=== PATIENT | female | born 2005 | race Two or more races ===

== ENCOUNTER 2024-10-08 14:08 | Emergency (ER) | payer MEDICAID, SELFPAY ==
[2024-10-08 14:33] VITALS: BP 105/75; PULSE 100; RESP 20; TEMP 36.9; O2SAT 100; BMI 23.9
--- NOTE | 2024-10-08 14:42 | EKG_ITS ---
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2005 Requested By: Sunni Mae ([facility]) [place] Order Number: [id number] Reading MD: Sunni Mae ([facility]) [place] Measurements Intervals [place] Rate: 119 P: 75 ID: 120 QRS: 114 QRSD: 102 T: 46 QT: 340 QTc: 478 Interpretive Statements SINUS TACHYCARDIA POSSIBLE LEFT ATRIAL ENLARGEMENT [-0.1mV P WAVE IN V1/V2] INCOMPLETE RIGHT BUNDLE BRANCH BLOCK [90+ ms QRS DURATION, TERMINAL R IN V1/V2, 40+ ms S IN I/aVL/V4/V5/V6] LEFT POSTERIOR FASCICULAR BLOCK [QRS AXIS > 109, INFERIOR Q] NONSPECIFIC T-WAVE ABNORMALITY Compared to ECG 07/07/2024 08:20:35 Incomplete right bundle-branch block now present Left posterior fascicular block now present T-wave abnormality now present Short ID interval no longer present Right-axis deviation no longer present /store/S0/[id number].pdf
--- NOTE | 2024-10-08 14:43 | XR_ITS ---
Examination: PA lateral chest 2 views TECHNIQUE: Upright PA lateral chest 2 views Exam date and time: October 08, 2024 1447 hours INDICATIONS: Tachycardia today. FINDINGS: Normal heart size Lungs are clear. The osseous structures are intact IMPRESSION: No active disease
--- NOTE | 2024-10-08 14:44 | PD.EDRME ---
Rapid Medical Screening Exam RME Arrival date/time: 10/08/24 14:08 18-year-old female presents to the emergency department with complaints of palpitations history of SVT patient reports she had a 5-minute episode of palpitations and she went ahead and took her flecainide dose relieving her symptoms she is here because she is having some mild chest pain normal palpitations. I have greeted and performed a focused initial assessment of this patient. Initial appropriate labs ordered at this time. A comprehensive ED assessment and evaluation of the patient and analysis of all test and completion of medical decision making process will be conducted by additional ED provider. Chief Complaint: Arrhythmia/Palpitations Time Seen by Provider: 10/08/24 14:16 Vital signs: Vital Signs Temperature 98.5 F 10/08/24 14:33 Pulse Rate 100 10/08/24 14:33 Respiratory Rate 20 10/08/24 14:33 Blood Pressure 105/75 10/08/24 14:33 Pulse Oximetry (%) 100 10/08/24 14:33 Oxygen Delivery Method Room Air 10/08/24 14:33
[2024-10-08 15:16] LABS: Basophils % (Auto) 1 % (0-2.5); Eosinophils # (Auto) 0.1 Thou/mm3 (0.0-0.5); Eosinophils % (Auto) 1 % (0-10); Hematocrit 36.6 % (36.0-46.0); Hemoglobin 12.9 g/dL (12.0-16.0); Immature Granulocytes % (Auto) 0 % (0-0); Immature Granulocytes Auto 0.01 Thou/mm3 (0.00-0.00); Lymphocytes # (Auto) 1.3 Thou/mm3 (1.0-5.0); Lymphocytes % (Auto) 21 % (10-50); Mean Corpuscular HGB Conc 35.2 g/dl (31.0-37.0); Mean Corpuscular Hemoglobin 32.2 pg (25.0-35.0); Mean Corpuscular Volume 91 fL (80-100); Monocytes # (Auto) 0.4 Thou/mm3 (0.0-0.8); Monocytes % (Auto) 7 % (0-12); Neutrophils # (Auto) 4.6 Thou/mm3 (1.8-7.7); Neutrophils % (Auto) 71 % (37-80); Nucleated Red Blood Cell % 0 /100 WBC (0); Platelet Count 181 Thou/mm3 (140-440); RDW Standard Deviation 40.4 fL (36.4-46.3); Red Blood Count 4.01 Miln/mm3 (4.00-5.20); White Blood Count 6.4 Thou/mm3 (4.5-11.0)
[2024-10-08 15:27] LABS: Collection Type, Urine Clean Catch
[2024-10-08 15:33] LABS: Bilirubin,Urine Negative (Negative); Blood,Urine Negative (Negative); Clarity,Urine Clear (Clear/Hazy); Color,Urine Lt-Yellow (Lt Yel-Yel); Glucose, Urine Negative (Negative); Ketones,Urine Negative (Negative); Leukocyte Esterase,Urine Positive (Negative); Nitrite,Urine Negative (Negative); Protein,Urine Trace (Neg - Trace); RBC,Urine 1 /hpf (0-3); Specific Gravity,Urine 1.022 (1.001-1.035); Squamous Epithelial Cell,Urine 2 /hpf (0-5); Urobilinogen,Urine Negative mg/dL (0.0-1.0); WBC,Urine 1 /hpf (0-5)
[2024-10-08 15:36] LABS: HCG Qualitative,Urine Negative
[2024-10-08 15:55] LABS: Alanine Aminotransferase 14 U/L (10-49); Albumin, Serum 4.8 gm/dL (3.5-5.0); Albumin/Globulin Ratio 1.7 (1.2-2.2); Alkaline Phosphatase 54 U/L (46-116); Anion Gap 7 (7-16); Aspartate Amino Transferase 15 U/L (0-34); BUN/Creatinine Ratio 15 Ratio (12-20); Bilirubin,Total 1.7 mg/dL (0.3-1.2); Blood Urea Nitrogen 9 mg/dL (9-23); Calcium 9.5 mg/dL (8.3-10.6); Calcium (Corrected) 9.5 mg/dL (8.5-10.1); Carbon Dioxide 24.6 mMol/L (20.0-31.0); Chloride 104 mMol/L (98-107); Creatinine (Component) 0.6 mg/dL (0.6-1.3); Estimated Creatinine Clearance 124.8 mL/min (>60); Globulin 2.8 gm/dL (2.3-3.5); Glucose 87 mg/dL (74-106); Lipase 35 U/L (12-53); Osmolality,Calculated 269 (275-295); Potassium 4.2 mMol/L (3.4-5.1); Sodium 136 mMol/L (136-145); Total Protein 7.6 gm/dL (5.7-8.2); Troponin I < 0.002 ng/mL (0.0-0.045); eGFR > 60 See Note
[2024-10-08 16:17] VITALS: BP 103/68; PULSE 109; RESP 16; TEMP 36.8; O2SAT 99
--- NOTE | 2024-10-08 16:18 | EKG_ITS ---
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2005 Requested By: Sunni Mae ([facility]) [place] Order Number: [id number] Reading MD: Sunni Mae ([facility]) [place] Measurements Intervals [place] Rate: 103 P: 79 CT: 134 QRS: 100 QRSD: 91 T: 50 QT: 326 QTc: 429 Interpretive Statements SINUS TACHYCARDIA POSSIBLE LEFT ATRIAL ENLARGEMENT [-0.1mV P WAVE IN V1/V2] BORDERLINE RIGHT AXIS DEVIATION [QRS AXIS > 90] INCOMPLETE RIGHT BUNDLE BRANCH BLOCK [90+ ms QRS DURATION, TERMINAL R IN V1/V2, 40+ ms S IN I/aVL/V4/V5/V6] ABNORMAL RHYTHM ECG Compared to ECG 07/07/2024 08:20:35 Incomplete right bundle-branch block now present Short CT interval no longer present /store/S0/[id number]/ecg/[id number].pdf
--- NOTE | 2024-10-08 16:51 | EDNOTE_ITS ---
ED Arrhythmia Palp. RME/HPI General Chief Complaint: Arrhythmia/Palpitations Stated Complaint: HEART PALPITATIONS Time Seen by Provider: 10/08/24 14:16 Source: patient Arrival date/time: 10/08/24 14:08 A 18-year-old female with a history of supraventricular tachycardia (SVT) presents to the emergency department (ED) due to an episode of palpitations. The patient reports that earlier this afternoon, she experienced palpitations and noticed that her heart rate was extremely high. In response, she self- administered 100 mg of her prescribed flecainide and then came to the ED for further evaluation. She has a history of SVT, with a previous episode treated in May 2024, and has been regularly following up with cardiology, specifically with Dr. Street in [place]. She is awaiting a stress test and Holter monitoring scheduled for next week. At the time of presentation, the patient denies any chest pain, dyspnea, or palpitations. Her main concern is the self- administration of the flecainide dose and seeking medical evaluation for reassurance. Mode of arrival: ambulatory Limitations: no limitations RME / HPI RME / HPI narrative: 10/08/24 14:08 18-year-old female presents to the emergency department with complaints of palpitations history of SVT patient reports she had a 5-minute episode of palpitations and she went ahead and took her flecainide dose relieving her symptoms she is here because she is having some mild chest pain normal palpitations. I have greeted and performed a focused initial assessment of this patient. Initial appropriate labs ordered at this time. A comprehensive ED assessment and evaluation of the patient and analysis of all test and completion of medical decision making process will be conducted by additional ED provider. Related Data Previous Rx's ?Medication ?Instructions ?Recorded azithromycin 250 mg tablet See Rx Instructions PO .COMPLEX #6 12/29/17 tabs hydrocodone 5 mg-acetaminophen 325 1 tab PO Q6H PRN pain #10 tabs 07/02/22 mg tablet Allergies Allergy/AdvReac Type Severity Reaction Status Date / Time No Known Allergies Allergy Verified 07/07/24 07:49 Review of Systems Review of Systems Systems Reviewed: All systems reviewed, normal except as documented Narrative Review of Systems: Gen: No fever, no chills, no weight loss EYES: No discharge, no visual changes, no pain HEENT: No ear pain, no congestion, no sore throat PULM: No shortness of breath, no cough, no congestion CV: No chest pain, no dyspnea on exertion, no palpitations GI: No nausea, no vomiting, no diarrhea, no pain, no constipation : No frequency, no urgency,? no dysuria Musc/skel: No joint pain, no back pain Skin: No rash? ED Exam Narrative Physical exam: Patient awake alert no distress noted. General Limitations: Present no limitations General appearance: Present alert and in no apparent distress Head Head exam: Present atraumatic Eye Eye exam: Present normal appearance, PERRL and EOMI ENT ENT exam: Present normal exam, normal oropharynx and mucous membranes moist Neck Neck exam: Present normal inspection, full ROM and trachea midline Chest Chest inspection: Present normal inspection and symmetric chest wall rise Respiratory Respiratory exam: Present normal lung sounds bilaterally Cardiovascular Cardiovascular exam: Present regular rate, normal rhythm and normal heart sounds Abdominal Exam Abdominal exam: Present soft and normal bowel sounds Extremities Exam Extremities exam: Present normal inspection and full ROM Back Exam Back exam: Present normal inspection and full ROM Neurological Exam Neurological exam: Present alert, oriented X3 and CN II-XII intact Psychiatric Psychiatric exam: Present normal affect and normal mood Skin Skin exam: Present warm, dry, intact and normal color Course Quality Measures none Orders Category Date Time Status EKG (ED ONLY) *Do not use* NOW Care 10/08/24 14:43 Completed EKG (ED ONLY) *Do not use* NOW Care 10/08/24 16:18 Completed EKG (ED Only) Stat Exams 10/08/24 14:42 Draft EKG (ED Only) Stat Exams 10/08/24 16:18 Ordered XR chest 2V Stat Exams 10/08/24 14:43 Completed CBC Stat Lab 10/08/24 15:10 Completed Comprehensive Metabolic Panel Stat Lab 10/08/24 15:10 Completed HCG Qualitative,Urine Stat Lab 10/08/24 15:19 Completed Lipase Stat Lab 10/08/24 15:10 Completed Troponin I Stat Lab 10/08/24 15:10 Completed Urinalysis Stat Lab 10/08/24 15:19 Completed Diltiazem [Cardizem] Med 10/08/24 16:33 Discontinued 30 mg PO X1 ONE Vital Signs Vital signs: Vital Signs Temperature 98.5 F 10/08/24 14:33 Pulse Rate 100 10/08/24 14:33 Respiratory Rate 20 10/08/24 14:33 Blood Pressure 105/75 10/08/24 14:33 Pulse Oximetry (%) 100 10/08/24 14:33 Oxygen Delivery Method Room Air 10/08/24 14:33 Procedures -ED EKG Interpretation #1: Date of EK10/08/24 Rate: 106 Interpretation: Interpreted by me EKG Impression: No acute ST-T changes and Sinus tachycardia Arrhythmia/Palpitations MDM Narrative MDM Narrative:: A 18-year-old female with a history of supraventricular tachycardia (SVT) presents to the emergency department (ED) due to an episode of palpitations. The patient reports that earlier this afternoon, she experienced palpitations and noticed that her heart rate was extremely high. In response, she self-administered 100 mg of her prescribed flecainide and then came to the ED for further evaluation. She does report she was supposed to take 3 tabs that equal 300 mg instead of 1 tab. At the time of presentation, the patient denies any chest pain, dyspnea, or palpitations. Her main concern is the self- administration of the flecainide dose and seeking medical evaluation for reassurance. Patient does not appear acutely ill, no distress vital signs stable heart rate range from 100-1 10 no SVT or lethal arrhythmia noted. Patient's labs unremarkable no dehydration no acute renal failure no electrolyte imbalance. Negative hCG. Chest x-ray normal. After speaking with patient and her sister we went ahead and made a call out to the sleep lab technician and they will see her sooner this upcoming week. Is instructed she can take 200 more milligrams of her flecainide if she feels a tacky or palpitations. Patient and Fany are agreeable to plan of care. Tricked ER precautions given to return if there is any worsening symptoms or change in condition. Patient data External records reviewed:: [facility] previous records Clinical information provided by:: patient Social determinants that could affect healthcare access:: none Patient has the following chronic illnesses:: hx tacky arrhythmia How is presenting disease/condition affected by chronic disease/condition?: exacerbated by Evaluation data The following diagnostics were reviewed and interpreted by me:: lab results, radiology exam(s) and EKG tracing(s) Lab and/or radiology exams considered but not ordered:: All labs considered ordered Interpretation Summary: Examination: PA lateral chest 2 views TECHNIQUE: Upright PA lateral chest 2 views Exam date and time: October 08, 2024 1447 hours INDICATIONS: Tachycardia today. FINDINGS: Normal heart size Lungs are clear. The osseous structures are intact IMPRESSION: No active disease Medications / Prescriptions Medications or Prescriptions considered but not ordered:: no Medication administrations:: Medication Administration History Discontinued Medications Diltiazem HCl (Diltiazem 30 Mg Tablet) 30 mg PO X1 ONE Stop: 10/08/24 16:34 Consultations Consultation(s) initiated? (list below): No Diagnosis Differential diagnosis arrhythmia/palpitations: palpitations, anxiety, sinus tachycardia, artial fibrillation, artial flutter, ventricular premature beats, supraventricular tachycardia and ventricular tachycardia Most likely diagnosis given after review of the tests above:: Tachyarrhythmia Admission Indicated Admission indicated?: not indicated Admission Request Was there a request for admission?: No Disposition Plan Disposition Plan: Discharge Discharge Attestation Discharge Attestation: The patient and all family members were given an opportunity to ask questions and understood the discharge instructions. Discharge instructions specifically effects, indications for sooner follow up or return to the emergency department, and the expected course of current diagnosis. Patient condition: Stable Discharge Plan Plan Patient Disposition: HOME (Self Care) Patient condition on transfer: Stable Prescriptions/Referrals Prescriptions/Med Rec: No Action azithromycin 250 mg tablet See Rx Instructions .ROUTE .COMPLEX Qty: 6 0RF Rx Instructions: take 2 tab (500 mg) today (day 1), then 1 tab (250 mg) for 4 days (days 2-5) hydrocodone-acetaminophen 5-325 mg tablet 1 tab PO Q6H MDD 6 tabs PRN (Reason: pain) Qty: 10 0RF Referrals: Reina Faust FNP [Primary Care Provider] - In 1 week Problem List Clinical Impression: Palpitations, Sinus tachycardia Patient/Caregiver Discharge Instructions Discharge Activity: as per physical therapy Education Materials: ED About Arrhythmias, ED Palpitations Additional Instructions: It is very important that you follow-up with your primary doctor or sleep lab technician as soon as possible. Please keep your appt for your stress test and holter monitor if Your symptoms return or worsen pls return to ER or call 911 Print Language: Norwegian Stand Alone Forms: Leana Award Info., Patient Portal Info Letter ZAIDA/JUDITH Supervising Physician ZAIDA/JUDITH Supervising Physician: Dr De Leon
== END 2024-10-08 17:35 | disposition home or self-care (01) ==
PROVIDERS: Nurse Practitioner Primary Care; Emergency Provider Emergency Medicine; PCP Registered Nurse Community Health
DX: R00.0 Tachycardia, unspecified (principal); I45.10 Unspecified right bundle-branch block; I44.5 Left posterior fascicular block
CPT/HCPCS: 36415; 71046; 80053; 81001; 81025; 83690; 84484; 85025; 93005; 99283